=== PATIENT | male | born 2000 | race Caucasian/White ===

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

== ENCOUNTER → 2022-08-07 | Outpatient (REF) | LOC: M EMP 13:18 | PROVIDERS: ATTEND Family Medicine | DX: Z11.52 Encounter for screening for COVID-19 (principal) ==

== ENCOUNTER 2023-04-03 01:06 | Emergency (ER) | payer OTHER ==
[~2023-04-03] VITALS: Ht 152.4 cm; Wt 57.2 kg
[2023-04-03 02:08] LABS: RSV AMPLIFICATION POSITIVE (NEGATIVE)
[2023-04-03] MEDS ORDERED: ONDANSETRON 4MG ORAL DISINTEGRATING TAB PO ONE (06:25)
[2023-04-03 06:42] LABS: BASO % 0.5 % (0.0-1.0); EOS % 0.6 % (0.0-3.0); HEMATOCRIT 38.3 % (42.0-52.0); HEMOGLOBIN 12.5 g/dl (13.5-17.5); LYMPH # 1.4 10^3/uL (1.5-5.0); LYMPH % 20.8 % (24.0-44.0); MEAN CORPUSCULAR HEMOGLOBIN 27.8 pg (27.0-33.0); MEAN CORPUSCULAR HGB CONC 32.6 g/dl (32.0-36.5); MEAN CORPUSCULAR VOLUME 85.1 fl (80.0-96.0); MONO # 0.5 10^3/uL (0.0-0.8); MONO % 6.9 % (2.0-8.0); NEUTROPHILS # 4.7 10^3/uL (1.5-8.5); NEUTROPHILS % 70.9 % (36.0-66.0); PLATELET COUNT, AUTOMATED 278 10^3/uL (150-450); WHITE BLOOD COUNT 6.6 10^3/uL (4.0-10.0)
[2023-04-03 07:14] LABS: ALBUMIN 3.1 G/DL (3.2-5.2); ALKALINE PHOSPHATASE 658 U/L (46-116); ALT/SGPT 203 U/L (7.0-40); AST/SGOT 100 U/L (<34); BILIRUBIN,DIRECT 0.5 MG/DL (<0.4); BILIRUBIN,TOTAL 0.9 MG/DL (0.3-1.2); BLOOD UREA NITROGEN 6 MG/DL (9-23); CALCIUM LEVEL 8.2 MG/DL (8.5-10.1); CARBON DIOXIDE LEVEL 27 MMOL/L (20-31); CHLORIDE LEVEL 103 MMOL/L (98-107); CREATININE FOR GFR 0.66 MG/DL (0.70-1.30); GLOMERULAR FILTRATION RATE > 60.0 (>60); GLUCOSE, FASTING 97 MG/DL (60-100); POTASSIUM SERUM 4.3 MMOL/L (3.5-5.1); SODIUM LEVEL 138 MMOL/L (136-145); TOTAL PROTEIN 7.3 G/DL (5.7-8.2)
[2023-04-03] MEDS ORDERED: NS 1,000 ML IV ONE (09:00)
[2023-04-03] MEDS ORDERED: ISOVUE-370 76% 100ML VIAL As Ordered ONE (09:04)
[2023-04-03 09:32] LABS: LIPASE 26 U/L (12-53)
[2023-04-03 11:45] VITALS: BP 112/67; TEMP 98.4; O2SAT 97
[2023-04-03 11:49] LABS: HEPATITIS B CORE ANTIBODY IGM NEGATIVE (NEGATIVE); HEPATITIS C VIRUS ABY INDEX 0.97 INDEX (<0.8)
[2023-04-05] MEDS ORDERED: AZIT-10 GT (11:42)
== END 2023-04-03 11:55 | disposition home or self-care (01) ==
LOC: M ED 01:06
DX: J06.9 Acute upper respiratory infection, unspecified (principal); B97.4 Respiratory syncytial virus as the cause of diseases classified elsewhere; K68.9 Other disorders of retroperitoneum; R59.1 Generalized enlarged lymph nodes; R16.2 Hepatomegaly with splenomegaly, not elsewhere classified; K82.4 Cholesterolosis of gallbladder
CPT/HCPCS: 72131; 74177; 76705; 80048; 80076; 83690; 85025; 86705; 86709; 86803; 87340; 87631; 96360; 96361; 99284; Q9967

== ENCOUNTER → 2023-04-05 | Outpatient (CLI) | payer OTHER ==
[~2023-04-05] MED LIST: AZIT-10 GT
== END ==
LOC: M RAD 12:21
PROVIDERS: ATTEND Specialist
DX: J18.9 Pneumonia, unspecified organism (principal)

== ENCOUNTER 2023-04-16 05:24 | Emergency (ER) | payer OTHER ==
[~2023-04-16] VITALS: Ht 152.4 cm; Wt 65.6 kg
[2023-04-16 07:23] VITALS: BP 148/75; TEMP 98; O2SAT 98
== END 2023-04-16 08:16 | disposition home or self-care (01) ==
LOC: M ED 05:24
DX: R22.42 Localized swelling, mass and lump, left lower limb (principal); Z91.011 Allergy to milk products; Z79.899 Other long term (current) drug therapy

== ENCOUNTER 2023-04-17 15:09 | Inpatient (IN) | payer OTHER ==
[2023-04-17 18:05] LABS: BASO % 0.4 % (0.0-1.0); EOS # 0.1 10^3/uL (0.0-0.5); EOS % 0.9 % (0.0-3.0); HEMATOCRIT 37.2 % (42.0-52.0); HEMOGLOBIN 11.8 g/dl (13.5-17.5); LYMPH # 1.8 10^3/uL (1.5-5.0); LYMPH % 24.5 % (24.0-44.0); MEAN CORPUSCULAR HEMOGLOBIN 27.3 pg (27.0-33.0); MEAN CORPUSCULAR HGB CONC 31.7 g/dl (32.0-36.5); MEAN CORPUSCULAR VOLUME 86.1 fl (80.0-96.0); MONO # 0.6 10^3/uL (0.0-0.8); MONO % 8.2 % (2.0-8.0); NEUTROPHILS # 4.9 10^3/uL (1.5-8.5); NEUTROPHILS % 65.6 % (36.0-66.0); PLATELET COUNT, AUTOMATED 260 10^3/uL (150-450); RED BLOOD COUNT 4.32 10^6/uL (4.30-6.10); WHITE BLOOD COUNT 7.4 10^3/uL (4.0-10.0)
[2023-04-17 18:13] LABS: ERYTHROCYTE SEDIMENTATION RATE 80 mm/hr (0-15)
[2023-04-17 18:17] LABS: INR 1.04; PROTHROMBIN TIME 13.3 SECONDS (12.5-14.5)
[2023-04-17 18:18] LABS: PARTIAL THROMBOPLASTIN TIME 45.1 SECONDS (24.8-34.2)
[2023-04-17 18:20] LABS: D-DIMER QUANT 0.79 ug/mL (<0.5)
[2023-04-17 18:30] LABS: CK-MB VALUE MASS < 1.0 NG/ML (<3.6); LIPASE 28 U/L (12-53)
[2023-04-17 18:32] LABS: ALBUMIN 1.1 G/DL (3.2-5.2); ALKALINE PHOSPHATASE 411 U/L (46-116); ALT/SGPT 76 U/L (7.0-40); AST/SGOT 66 U/L (<34); BILIRUBIN,DIRECT < 0.1 MG/DL (<0.4); BILIRUBIN,TOTAL 0.2 MG/DL (0.3-1.2); BLOOD UREA NITROGEN 12 MG/DL (9-23); CALCIUM LEVEL 7.3 MG/DL (8.5-10.1); CARBON DIOXIDE LEVEL 28 MMOL/L (20-31); CHLORIDE LEVEL 110 MMOL/L (98-107); CPK CREATINE PHOSPHOKINASE 49 U/L (46-171); CREATININE FOR GFR 0.66 MG/DL (0.70-1.30); GLOMERULAR FILTRATION RATE > 60.0 (>60); GLUCOSE, FASTING 87 MG/DL (60-100); MAGNESIUM LEVEL 1.8 MG/DL (1.8-2.4); MB/CK RELATIVE INDEX 2.04 (< OR =4); POTASSIUM SERUM 4.2 MMOL/L (3.5-5.1); SODIUM LEVEL 140 MMOL/L (136-145); TOTAL PROTEIN 4.4 G/DL (5.7-8.2)
[2023-04-17 18:33] LABS: FREE T4 0.67 NG/DL (0.89-1.76); THYROID STIMULATING HORMONE 5.821 uIU/ML (0.55-4.78)
[2023-04-17 18:38] LABS: PROCALCITONIN 1.15 ng/ml
[2023-04-17 18:40] LABS: MONO SCRN NEGATIVE (NEGATIVE)
[2023-04-17 19:04] LABS: LDH LACTATE DEHYDROGENASE 166 U/L (120-246)
[2023-04-17] MEDS ORDERED: ISOVUE-370 76% 100ML VIAL As Ordered ONE (19:11)
[2023-04-17 20:43] LABS: IONIZED CALCIUM 4.4 MG/DL (4.5-5.3)
[2023-04-17] MEDS ORDERED: HOME MED LIST COMPLETE! XX SCH (21:10)
[2023-04-17 21:39] LABS: PTH INTACT 35.1 PG/ML (18.5-88.0)
[2023-04-17] MEDS ORDERED: FUROSEMIDE 20MG/2ML VIAL IV ONE (22:20)
[2023-04-17 22:30] VITALS: BP 145/91; TEMP 97.7; O2SAT 96
[2023-04-17 23:04] LABS: HIV 1&2 SCREEN NEGATIVE (NEGATIVE)
[2023-04-18] MEDS: HEPARIN SOD (PORCINE) 5000UNITS/ML 1ML VIAL/SYRINGE SC SCH ×3 (05:34→21:44)
[2023-04-18 06:23] LABS: ALBUMIN 1.1 G/DL (3.2-5.2); ALKALINE PHOSPHATASE 406 U/L (46-116); ALT/SGPT 62 U/L (7.0-40); AST/SGOT 55 U/L (<34); BILIRUBIN,TOTAL 0.3 MG/DL (0.3-1.2); BLOOD UREA NITROGEN 10 MG/DL (9-23); CALCIUM LEVEL 7.1 MG/DL (8.5-10.1); CARBON DIOXIDE LEVEL 28 MMOL/L (20-31); CHLORIDE LEVEL 107 MMOL/L (98-107); CREATININE FOR GFR 0.67 MG/DL (0.70-1.30); GLOMERULAR FILTRATION RATE > 60.0 (>60); GLUCOSE, FASTING 85 MG/DL (60-100); POTASSIUM SERUM 4.2 MMOL/L (3.5-5.1); SODIUM LEVEL 139 MMOL/L (136-145); TOTAL PROTEIN 4.2 G/DL (5.7-8.2)
[2023-04-18 06:52] VITALS: BP 129/74; TEMP 97.9; O2SAT 100
[2023-04-18] MEDS: FUROSEMIDE 20MG/2ML VIAL IV SCH (08:36)
[2023-04-18 09:31] LABS: CREATININE,RANDOM URINE 201.8 MG/DL
[2023-04-18 10:12] LABS: ANTI-STREPTOLYSIN O QUANT 194.6 IU/ML (<195)
[2023-04-18 10:13] LABS: COMPLEMENT C3 156.3 MG/DL (82.0-160.0); COMPLEMENT C4 27.5 MG/DL (12-36)
[2023-04-18 14:10] VITALS: BP 126/76; TEMP 98.1; O2SAT 99
[2023-04-18 18:08] LABS: THYROID PEROXIDASE ANTIBODY < 28.0 U/ML (<60.0); THYROID STIMULATING HORMONE 5.908 uIU/ML (0.55-4.78)
[2023-04-18 18:09] LABS: FREE T4 0.62 NG/DL (0.89-1.76)
[2023-04-18 18:51] LABS: HEPATITIS C VIRUS ABY INDEX 0.27 INDEX (<0.8)
[2023-04-18 20:18] VITALS: BP 130/75; TEMP 97.9; O2SAT 99
[2023-04-19] VITALS (8 sets, daily range): BP systolic 112–127; BP diastolic 58–80; TEMP 97.2–98.2; O2SAT 96–99
[2023-04-19] MEDS: HEPARIN SOD (PORCINE) 5000UNITS/ML 1ML VIAL/SYRINGE SC SCH ×3 (05:21→22:01)
[2023-04-19 06:58] LABS: BASO % 0.4 % (0.0-1.0); EOS # 0.1 10^3/uL (0.0-0.5); EOS % 2.3 % (0.0-3.0); HEMATOCRIT 35.7 % (42.0-52.0); HEMOGLOBIN 11.7 g/dl (13.5-17.5); LYMPH # 1.8 10^3/uL (1.5-5.0); LYMPH % 34.4 % (24.0-44.0); MEAN CORPUSCULAR HEMOGLOBIN 27.7 pg (27.0-33.0); MEAN CORPUSCULAR HGB CONC 32.8 g/dl (32.0-36.5); MEAN CORPUSCULAR VOLUME 84.6 fl (80.0-96.0); MONO # 0.4 10^3/uL (0.0-0.8); MONO % 8.2 % (2.0-8.0); NEUTROPHILS # 2.8 10^3/uL (1.5-8.5); NEUTROPHILS % 54.3 % (36.0-66.0); PLATELET COUNT, AUTOMATED 295 10^3/uL (150-450); RED BLOOD COUNT 4.22 10^6/uL (4.30-6.10); WHITE BLOOD COUNT 5.1 10^3/uL (4.0-10.0)
[2023-04-19 07:07] LABS: ALBUMIN 1.1 G/DL (3.2-5.2); ALKALINE PHOSPHATASE 432 U/L (46-116); ALT/SGPT 64 U/L (7.0-40); AST/SGOT 76 U/L (<34); BILIRUBIN,TOTAL 0.2 MG/DL (0.3-1.2); BLOOD UREA NITROGEN 12 MG/DL (9-23); CALCIUM LEVEL 7.1 MG/DL (8.5-10.1); CARBON DIOXIDE LEVEL 29 MMOL/L (20-31); CHLORIDE LEVEL 106 MMOL/L (98-107); CREATININE FOR GFR 0.64 MG/DL (0.70-1.30); GLOMERULAR FILTRATION RATE > 60.0 (>60); GLUCOSE, FASTING 93 MG/DL (60-100); POTASSIUM SERUM 3.8 MMOL/L (3.5-5.1); SODIUM LEVEL 139 MMOL/L (136-145); TOTAL PROTEIN 4.2 G/DL (5.7-8.2)
[2023-04-19] MEDS: FUROSEMIDE 20MG/2ML VIAL IV SCH (08:29)
[2023-04-19 09:45] LABS: FREE T4 0.52 NG/DL (0.89-1.76); THYROID STIMULATING HORMONE 9.245 uIU/ML (0.55-4.78)
[2023-04-19] MEDS ORDERED: LIDOCAINE 1% MDV 20ML VIAL As Ordered ONE (10:59)
[2023-04-20] VITALS (7 sets, daily range): BP systolic 117–151; BP diastolic 66–82; TEMP 97–97.7; O2SAT 96–98
[2023-04-20] MEDS: HEPARIN SOD (PORCINE) 5000UNITS/ML 1ML VIAL/SYRINGE SC SCH ×3 (06:00→20:45)
[2023-04-20] MEDS: LEVOTHYROXINE 88MCG TABLET (0.088 MG) PO SCH (06:01)
[2023-04-20 06:13] LABS: BASO % 0.6 % (0.0-1.0); EOS # 0.1 10^3/uL (0.0-0.5); EOS % 1.5 % (0.0-3.0); HEMATOCRIT 33.5 % (42.0-52.0); LYMPH # 1.9 10^3/uL (1.5-5.0); LYMPH % 34.3 % (24.0-44.0); MEAN CORPUSCULAR HEMOGLOBIN 27.6 pg (27.0-33.0); MEAN CORPUSCULAR HGB CONC 32.8 g/dl (32.0-36.5); MEAN CORPUSCULAR VOLUME 84.2 fl (80.0-96.0); MONO # 0.6 10^3/uL (0.0-0.8); MONO % 10.1 % (2.0-8.0); NEUTROPHILS # 2.9 10^3/uL (1.5-8.5); NEUTROPHILS % 53.1 % (36.0-66.0); PLATELET COUNT, AUTOMATED 260 10^3/uL (150-450); RED BLOOD COUNT 3.98 10^6/uL (4.30-6.10); WHITE BLOOD COUNT 5.4 10^3/uL (4.0-10.0)
[2023-04-20 06:28] LABS: BLOOD UREA NITROGEN 11 MG/DL (9-23); CALCIUM LEVEL 7.1 MG/DL (8.5-10.1); CARBON DIOXIDE LEVEL 28 MMOL/L (20-31); CHLORIDE LEVEL 108 MMOL/L (98-107); CREATININE FOR GFR 0.69 MG/DL (0.70-1.30); GLOMERULAR FILTRATION RATE > 60.0 (>60); GLUCOSE, FASTING 83 MG/DL (60-100); POTASSIUM SERUM 4.1 MMOL/L (3.5-5.1); SODIUM LEVEL 140 MMOL/L (136-145)
[2023-04-20] MEDS: FUROSEMIDE 20MG/2ML VIAL IV SCH (08:21)
[2023-04-20] MEDS ORDERED: LIDOCAINE 2% 100MG/5ML SDV (FOR ANES.) As Ordered ONE (10:56)
[2023-04-20] MEDS ORDERED: propofoL 200 MG/20 ML VIAL As Ordered ONE (10:56)
[2023-04-20] MEDS ORDERED: fentaNYL 100 MCG/2 ML INJECTION As Ordered ONE (10:56)
[2023-04-20] MEDS ORDERED: ONDANSETRON 4MG 2ML VIAL As Ordered ONE (10:56)
[2023-04-20] MEDS ORDERED: ACETAMINOPHEN 1000MG 100ML IV BAG As Ordered ONE (10:56)
[2023-04-20] MEDS ORDERED: MIDAZOLAM INJ 2MG/2ML VIAL As Ordered ONE (10:57)
[2023-04-20] MEDS ORDERED: SUGAMMADEX SODIUM 500 MG/5 ML VIAL (BRIDION) As Ordered ONE (11:02)
[2023-04-20] MEDS ORDERED: ROCURONIUM BROMIDE 50MG/5ML VIAL As Ordered ONE (11:02)
[2023-04-20] MEDS ORDERED: LIDOCAINE W/EPINEPHRINE 1% 20ML VIAL As Ordered ONE (11:19)
[2023-04-20] MEDS ORDERED: ONDANSETRON 4MG 2ML VIAL IV PRN (12:35)
[2023-04-20] MEDS ORDERED: fentaNYL 100 MCG/2 ML INJECTION IV PRN (12:35)
[2023-04-20] MEDS ORDERED: oxyCODONE 5MG TAB PO PRN (12:35)
[2023-04-20] MEDS ORDERED: HYDROMORPHONE HCL 0.5 MG/ 0.5 ML SYRINGE IV PRN (12:35)
[2023-04-20] MEDS ORDERED: LR 1,000 ML IV SCH (12:35)
[2023-04-21 02:19] VITALS: BP 151/82; TEMP 97.7; O2SAT 97
[2023-04-21] MEDS: LEVOTHYROXINE 88MCG TABLET (0.088 MG) PO SCH (05:20)
[2023-04-21] MEDS: HEPARIN SOD (PORCINE) 5000UNITS/ML 1ML VIAL/SYRINGE SC SCH ×2 (05:24→14:00)
[2023-04-21 05:56] VITALS: BP 132/72; TEMP 98.4; O2SAT 96
[2023-04-21 07:16] LABS: BASO % 0.1 % (0.0-1.0); EOS % 0.5 % (0.0-3.0); HEMATOCRIT 34.6 % (42.0-52.0); HEMOGLOBIN 11.7 g/dl (13.5-17.5); LYMPH # 2.2 10^3/uL (1.5-5.0); LYMPH % 28.8 % (24.0-44.0); MEAN CORPUSCULAR HEMOGLOBIN 28.2 pg (27.0-33.0); MEAN CORPUSCULAR HGB CONC 33.8 g/dl (32.0-36.5); MEAN CORPUSCULAR VOLUME 83.4 fl (80.0-96.0); MONO # 0.8 10^3/uL (0.0-0.8); MONO % 9.7 % (2.0-8.0); NEUTROPHILS # 4.7 10^3/uL (1.5-8.5); NEUTROPHILS % 60.6 % (36.0-66.0); PLATELET COUNT, AUTOMATED 298 10^3/uL (150-450); RED BLOOD COUNT 4.15 10^6/uL (4.30-6.10); WHITE BLOOD COUNT 7.8 10^3/uL (4.0-10.0)
[2023-04-21 08:24] LABS: BLOOD UREA NITROGEN 17 MG/DL (9-23); CALCIUM LEVEL 7.5 MG/DL (8.5-10.1); CHLORIDE LEVEL 107 MMOL/L (98-107); CREATININE FOR GFR 0.73 MG/DL (0.70-1.30); GLOMERULAR FILTRATION RATE > 60.0 (>60); GLUCOSE, FASTING 136 MG/DL (60-100); SODIUM LEVEL 141 MMOL/L (136-145)
[2023-04-21 08:51] LABS: CARBON DIOXIDE LEVEL 29 MMOL/L (20-31)
[2023-04-21] MEDS: FUROSEMIDE 20MG/2ML VIAL IV SCH (09:40)
[2023-04-21 10:00] VITALS: BP 101/54; TEMP 97.3; O2SAT 98
[2023-04-21] MEDS ORDERED: LISI10TA24 PO (11:09)
[2023-04-21 14:00] VITALS: BP 99/52; TEMP 97.7; O2SAT 95
[2023-04-21] MEDS ORDERED: LEVO88CA PO (16:37)
== END 2023-04-21 18:00 | disposition home or self-care (01) | DRG 952 ==
LOC: M ED 15:09 → M ED INP 20:56 → M MS5PR 22:25
PROVIDERS: ADMIT Internal Medicine; ATTEND Internal Medicine
PROC: 0TB13ZX Excision of Left Kidney, Percutaneous Approach, Diagnostic (ICD-10-PCS; principal; 2023-04-19 11:30)
PROC: 07B20ZX Excision of Left Neck Lymphatic, Open Approach, Diagnostic (ICD-10-PCS; 2023-04-20)
DX: N04.9 Nephrotic syndrome with unspecified morphologic changes (principal); E88.09 Other disorders of plasma-protein metabolism, not elsewhere classified; I10 Essential (primary) hypertension; E83.51 Hypocalcemia; R16.0 Hepatomegaly, not elsewhere classified; R63.4 Abnormal weight loss; D64.9 Anemia, unspecified; R59.1 Generalized enlarged lymph nodes; R80.9 Proteinuria, unspecified; D63.8 Anemia in other chronic diseases classified elsewhere; B19.20 Unspecified viral hepatitis C without hepatic coma; E03.9 Hypothyroidism, unspecified; R74.01 Elevation of levels of liver transaminase levels; R60.0 Localized edema

== ENCOUNTER 2023-04-27 20:43 | Emergency (ER) | payer OTHER ==
[~2023-04-27] VITALS: Ht 152.4 cm; Wt 54.7 kg
[~2023-04-27 20:43] MED LIST changes: +LEVO88CA PO; +LISI10TA24 PO
[2023-04-28 00:39] VITALS: TEMP 98
[2023-04-28 03:15] VITALS: BP 115/60; O2SAT 98
== END 2023-04-28 03:30 | disposition home or self-care (01) ==
LOC: M ED 20:43
DX: R03.0 Elevated blood-pressure reading, without diagnosis of hypertension (principal); T40.715A Adverse effect of cannabis, initial encounter; F12.10 Cannabis abuse, uncomplicated

== ENCOUNTER 2023-04-30 19:40 | Emergency (ER) | payer OTHER ==
[~2023-04-30] VITALS: Ht 152.4 cm; Wt 52.5 kg
[2023-04-30 21:12] LABS: BASO % 0.5 % (0.0-1.0); EOS # 0.1 10^3/uL (0.0-0.5); EOS % 1.1 % (0.0-3.0); HEMATOCRIT 46.3 % (42.0-52.0); HEMOGLOBIN 15.7 g/dl (13.5-17.5); LYMPH # 2.2 10^3/uL (1.5-5.0); LYMPH % 33.3 % (24.0-44.0); MEAN CORPUSCULAR HEMOGLOBIN 27.8 pg (27.0-33.0); MEAN CORPUSCULAR HGB CONC 33.9 g/dl (32.0-36.5); MEAN CORPUSCULAR VOLUME 82.1 fl (80.0-96.0); MONO # 0.6 10^3/uL (0.0-0.8); MONO % 8.7 % (2.0-8.0); NEUTROPHILS # 3.6 10^3/uL (1.5-8.5); NEUTROPHILS % 56.1 % (36.0-66.0); PLATELET COUNT, AUTOMATED 300 10^3/uL (150-450); RED BLOOD COUNT 5.64 10^6/uL (4.30-6.10); WHITE BLOOD COUNT 6.5 10^3/uL (4.0-10.0)
[2023-04-30 21:25] LABS: AMPHETAMINES LEVEL URINE NEGATIVE (NEGATIVE); BARBITURATES URINE NEGATIVE (NEGATIVE); BENZODIAZEPINES URINE NEGATIVE (NEGATIVE); COCAINE METABOLITE URINE NEGATIVE (NEGATIVE); METHADONE URINE NEGATIVE (NEGATIVE); OPIATES URINE NEGATIVE (NEGATIVE); PHENCYCLIDINE URINE NEGATIVE (NEGATIVE)
[2023-04-30 21:26] LABS: CANNABINOIDS URINE POSITIVE (NEGATIVE)
[2023-04-30 21:39] LABS: LIPASE 36 U/L (12-53)
[2023-04-30 21:41] LABS: CPK CREATINE PHOSPHOKINASE 18 U/L (46-171)
[2023-04-30 21:42] LABS: ALBUMIN 2.8 G/DL (3.2-5.2); ALKALINE PHOSPHATASE 670 U/L (46-116); ALT/SGPT 117 U/L (7.0-40); AST/SGOT 88 U/L (<34); BILIRUBIN,DIRECT 0.2 MG/DL (<0.4); BILIRUBIN,TOTAL 0.6 MG/DL (0.3-1.2); BLOOD UREA NITROGEN 13 MG/DL (9-23); CALCIUM LEVEL 8.6 MG/DL (8.5-10.1); CARBON DIOXIDE LEVEL 29 MMOL/L (20-31); CHLORIDE LEVEL 97 MMOL/L (98-107); CK-MB VALUE MASS < 1.0 NG/ML (<3.6); CREATININE FOR GFR 0.68 MG/DL (0.70-1.30); GLOMERULAR FILTRATION RATE > 60.0 (>60); GLUCOSE, FASTING 101 MG/DL (60-100); MAGNESIUM LEVEL 1.9 MG/DL (1.8-2.4); MB/CK RELATIVE INDEX 5.55 (< OR =4); POTASSIUM SERUM 4.3 MMOL/L (3.5-5.1); SODIUM LEVEL 132 MMOL/L (136-145); TOTAL PROTEIN 7.3 G/DL (5.7-8.2)
[2023-04-30 21:45] LABS: FREE T4 1.53 NG/DL (0.89-1.76); THYROID STIMULATING HORMONE 2.599 uIU/ML (0.55-4.78)
[2023-04-30] MEDS ORDERED: NS 1,000 ML IV ONE (22:20)
[2023-05-01 01:10] VITALS: BP 112/74; TEMP 98.4; O2SAT 98
== END 2023-05-01 01:30 | disposition home or self-care (01) ==
LOC: M ED 19:40
DX: R00.2 Palpitations (principal); Z79.890 Hormone replacement therapy

== ENCOUNTER 2023-05-03 14:39 | Emergency (ER) | payer OTHER ==
[~2023-05-03] VITALS: Ht 152.4 cm; Wt 53.3 kg
[2023-05-03 15:37] LABS: BASO % 0.4 % (0.0-1.0); EOS # 0.1 10^3/uL (0.0-0.5); EOS % 1.6 % (0.0-3.0); HEMATOCRIT 41.4 % (42.0-52.0); HEMOGLOBIN 14.2 g/dl (13.5-17.5); LYMPH # 2.6 10^3/uL (1.5-5.0); LYMPH % 35.8 % (24.0-44.0); MEAN CORPUSCULAR HEMOGLOBIN 27.8 pg (27.0-33.0); MEAN CORPUSCULAR HGB CONC 34.3 g/dl (32.0-36.5); MEAN CORPUSCULAR VOLUME 81.2 fl (80.0-96.0); MONO # 0.7 10^3/uL (0.0-0.8); MONO % 9.2 % (2.0-8.0); NEUTROPHILS # 3.8 10^3/uL (1.5-8.5); NEUTROPHILS % 52.7 % (36.0-66.0); PLATELET COUNT, AUTOMATED 265 10^3/uL (150-450); WHITE BLOOD COUNT 7.3 10^3/uL (4.0-10.0)
[2023-05-03 16:08] LABS: LIPASE 45 U/L (12-53)
[2023-05-03 16:12] LABS: FREE T4 1.63 NG/DL (0.89-1.76); THYROID STIMULATING HORMONE 2.082 uIU/ML (0.55-4.78)
[2023-05-03 16:13] LABS: ALBUMIN 2.7 G/DL (3.2-5.2); ALKALINE PHOSPHATASE 626 U/L (46-116); ALT/SGPT 147 U/L (7.0-40); AST/SGOT 128 U/L (<34); BILIRUBIN,DIRECT 0.2 MG/DL (<0.4); BILIRUBIN,TOTAL 0.4 MG/DL (0.3-1.2); BLOOD UREA NITROGEN 14 MG/DL (9-23); CALCIUM LEVEL 7.9 MG/DL (8.5-10.1); CARBON DIOXIDE LEVEL 26 MMOL/L (20-31); CHLORIDE LEVEL 102 MMOL/L (98-107); CREATININE FOR GFR 0.55 MG/DL (0.70-1.30); GLOMERULAR FILTRATION RATE > 60.0 (>60); GLUCOSE, FASTING 114 MG/DL (60-100); POTASSIUM SERUM 4.2 MMOL/L (3.5-5.1); SODIUM LEVEL 135 MMOL/L (136-145); TOTAL PROTEIN 6.6 G/DL (5.7-8.2)
[2023-05-03] MEDS ORDERED: NS 1,000 ML IV ONE (17:55)
[2023-05-03] MEDS ORDERED: AUGMENTIN 875 MG TAB PO ONE (18:25)
[2023-05-03 19:23] VITALS: BP 115/55; TEMP 97; O2SAT 99
[2023-05-03] MEDS ORDERED: AMOX875T2 PO (19:37)
== END 2023-05-03 19:48 | disposition home or self-care (01) ==
LOC: M ED 14:39
DX: J02.0 Streptococcal pharyngitis (principal); I49.9 Cardiac arrhythmia, unspecified; Z91.011 Allergy to milk products; Z79.899 Other long term (current) drug therapy; Z79.890 Hormone replacement therapy

== ENCOUNTER → 2023-05-08 | Outpatient (REF) | payer OTHER ==
[~2023-05-08] MED LIST changes: +AMOX875T2 PO
[2023-05-08 17:21] LABS: BASO % 0.7 % (0.0-1.0); EOS # 0.1 10^3/uL (0.0-0.5); EOS % 1.5 % (0.0-3.0); HEMATOCRIT 45.9 % (42.0-52.0); HEMOGLOBIN 15.4 g/dl (13.5-17.5); LYMPH # 2.8 10^3/uL (1.5-5.0); LYMPH % 47.7 % (24.0-44.0); MEAN CORPUSCULAR HEMOGLOBIN 27.9 pg (27.0-33.0); MEAN CORPUSCULAR HGB CONC 33.6 g/dl (32.0-36.5); MEAN CORPUSCULAR VOLUME 83.3 fl (80.0-96.0); MONO # 0.4 10^3/uL (0.0-0.8); NEUTROPHILS # 2.6 10^3/uL (1.5-8.5); NEUTROPHILS % 43.8 % (36.0-66.0); PLATELET COUNT, AUTOMATED 324 10^3/uL (150-450); RED BLOOD COUNT 5.51 10^6/uL (4.30-6.10); WHITE BLOOD COUNT 5.9 10^3/uL (4.0-10.0)
[2023-05-08 17:22] LABS: HEMOGLOBIN A1c 5.2 % (4.0-6.0)
[2023-05-08 17:33] LABS: CREATININE, URINE 39.4 MG/DL; CREATININE,RANDOM URINE 39.4 MG/DL
[2023-05-08 17:34] LABS: MAU/CREAT RATIO 291.8 MCG/MG (0.0-30.0)
[2023-05-08 17:35] LABS: ALBUMIN 3.4 G/DL (3.2-5.2); ALKALINE PHOSPHATASE 646 U/L (46-116); ALT/SGPT 166 U/L (7.0-40); AST/SGOT 106 U/L (<34); BILIRUBIN,DIRECT 0.2 MG/DL (<0.4); BILIRUBIN,TOTAL 0.4 MG/DL (0.3-1.2); BLOOD UREA NITROGEN 10 MG/DL (9-23); CALCIUM LEVEL 8.7 MG/DL (8.5-10.1); CARBON DIOXIDE LEVEL 32 MMOL/L (20-31); CHLORIDE LEVEL 102 MMOL/L (98-107); CHOLESTEROL LEVEL 192 MG/DL (<200); CHOLESTEROL RISK RATIO 4.21 (<5); CREATININE FOR GFR 0.72 MG/DL (0.70-1.30); GLOMERULAR FILTRATION RATE > 60.0 (>60); GLUCOSE, FASTING 97 MG/DL (60-100); HDL CHOLESTEROL 45.6 MG/DL (>40); LDL CHOLESTEROL 111.4 MG/DL (<100); NON-HDL-C 146.4 MG/DL; POTASSIUM SERUM 4.8 MMOL/L (3.5-5.1); SODIUM LEVEL 137 MMOL/L (136-145); TOTAL PROTEIN 7.5 G/DL (5.7-8.2); TRIGLYCERIDES LEVEL 175 MG/DL (<150)
[2023-05-08 17:36] LABS: FREE T4 1.86 NG/DL (0.89-1.76); THYROID STIMULATING HORMONE 2.322 uIU/ML (0.55-4.78)
[2023-05-08 19:01] LABS: CHLAMYDIA DNA AMPLIFICATION NEGATIVE (NEGATIVE); GC DNA AMPLIFICATION NEGATIVE (NEGATIVE)
== END ==
LOC: M LAB REF 16:22
PROVIDERS: ATTEND Nurse Practitioner Family
DX: R80.9 Proteinuria, unspecified (principal); Z11.9 Encounter for screening for infectious and parasitic diseases, unspecified; R74.01 Elevation of levels of liver transaminase levels; N04.9 Nephrotic syndrome with unspecified morphologic changes; E55.9 Vitamin D deficiency, unspecified; R53.83 Other fatigue; E06.9 Thyroiditis, unspecified

== ENCOUNTER → 2023-05-15 | Outpatient (REF) | payer OTHER ==
[~2023-05-15] MED LIST changes: +MIRA3350 PO
== END ==
LOC: M LAB REF 17:23
PROVIDERS: ATTEND Internal Medicine Nephrology
DX: N04.20 Nephrotic syndrome with diffuse membranous glomerulonephritis, unspecified (principal)

== ENCOUNTER → 2023-06-19 | Outpatient (CLI) | payer OTHER ==
[2023-06-19 14:08] LABS: ALBUMIN 3.7 G/DL (3.2-5.2); ALKALINE PHOSPHATASE 99 U/L (46-116); ALT/SGPT 20 U/L (7.0-40); AST/SGOT 19 U/L (<34); BILIRUBIN,TOTAL 0.5 MG/DL (0.3-1.2); BLOOD UREA NITROGEN 15 MG/DL (9-23); CALCIUM LEVEL 9.3 MG/DL (8.5-10.1); CARBON DIOXIDE LEVEL 34 MMOL/L (20-31); CHLORIDE LEVEL 104 MMOL/L (98-107); CREATININE FOR GFR 0.69 MG/DL (0.70-1.30); GLOMERULAR FILTRATION RATE > 60.0 (>60); GLUCOSE, FASTING 89 MG/DL (60-100); POTASSIUM SERUM 4.3 MMOL/L (3.5-5.1); SODIUM LEVEL 140 MMOL/L (136-145); TOTAL PROTEIN 6.7 G/DL (5.7-8.2)
[2023-06-19 14:09] LABS: BASO % 0.3 % (0.0-1.0); EOS # 0.1 10^3/uL (0.0-0.5); EOS % 1.2 % (0.0-3.0); HEMATOCRIT 40.2 % (42.0-52.0); HEMOGLOBIN 13.6 g/dl (13.5-17.5); LYMPH # 2.7 10^3/uL (1.5-5.0); LYMPH % 45.7 % (24.0-44.0); MEAN CORPUSCULAR HEMOGLOBIN 28.5 pg (27.0-33.0); MEAN CORPUSCULAR HGB CONC 33.8 g/dl (32.0-36.5); MEAN CORPUSCULAR VOLUME 84.1 fl (80.0-96.0); MONO # 0.5 10^3/uL (0.0-0.8); MONO % 7.8 % (2.0-8.0); NEUTROPHILS # 2.6 10^3/uL (1.5-8.5); NEUTROPHILS % 44.7 % (36.0-66.0); PLATELET COUNT, AUTOMATED 265 10^3/uL (150-450); RED BLOOD COUNT 4.78 10^6/uL (4.30-6.10); WHITE BLOOD COUNT 5.9 10^3/uL (4.0-10.0)
[2023-06-19 14:12] LABS: HEPATITIS B SURFACE ANTIBODY POSITIVE (POSITIVE)
[2023-06-19 14:38] LABS: HIV 1&2 SCREEN NEGATIVE (NEGATIVE)
== END ==
LOC: M PLALAB 10:20
PROVIDERS: ATTEND Internal Medicine Infectious Disease
DX: A52.8 Late syphilis, latent (principal); Z91.89 Other specified personal risk factors, not elsewhere classified

== ENCOUNTER → 2023-06-22 | Outpatient (CLI) | payer OTHER | LOC: M RAD 13:33 | PROVIDERS: ATTEND Urology | DX: N50.89 Other specified disorders of the male genital organs (principal) ==

== ENCOUNTER → 2023-07-16 | Outpatient (REF) | payer OTHER ==
[2023-07-16 18:23] LABS: THYROID STIMULATING HORMONE 1.277 uIU/ML (0.55-4.78)
== END ==
LOC: M LAB REF 17:12
PROVIDERS: ATTEND Nurse Practitioner Family
DX: E06.9 Thyroiditis, unspecified (principal); R77.8 Other specified abnormalities of plasma proteins

== ENCOUNTER → 2023-07-24 | Outpatient (CLI) | payer OTHER | LOC: M EKG 12:02 | PROVIDERS: ATTEND Nurse Practitioner Family | DX: R00.2 Palpitations (principal) ==

== ENCOUNTER → 2023-07-30 | Outpatient (CLI) | payer OTHER ==
[~2023-07-30] MED LIST changes: +GASTROGRAFIN SOLUTION 30ML As Ordered ONE; +ISOVUE-370 76% 100ML VIAL As Ordered ONE
== END ==
LOC: M RAD 09:59
PROVIDERS: ATTEND Specialist
DX: I89.0 Lymphedema, not elsewhere classified (principal); R16.2 Hepatomegaly with splenomegaly, not elsewhere classified
CPT/HCPCS: 74177; Q9963; Q9967

== ENCOUNTER → 2023-12-07 | Outpatient (CLI) | payer OTHER ==
[~2023-12-07] MED LIST changes: -GASTROGRAFIN SOLUTION 30ML As Ordered ONE; -ISOVUE-370 76% 100ML VIAL As Ordered ONE; +LISI5TAB11 PO; +VITAD400CA FT
[2023-12-07 19:29] LABS: HIV 1&2 SCREEN NEGATIVE (NEGATIVE)
== END ==
LOC: M PLALAB 13:20
PROVIDERS: ATTEND Internal Medicine Infectious Disease
DX: Z20.6 Contact with and (suspected) exposure to human immunodeficiency virus [HIV] (principal); A52.8 Late syphilis, latent

== ENCOUNTER → 2023-12-18 | Outpatient (REF) | payer OTHER ==
[2023-12-18 16:36] LABS: GC DNA AMPLIFICATION NEGATIVE (NEGATIVE)
[2023-12-18 16:37] LABS: GC DNA AMPLIFICATION NEGATIVE (NEGATIVE)
== END ==
LOC: M SFHCPLAZ 14:52
PROVIDERS: ATTEND Internal Medicine Infectious Disease
DX: A52.8 Late syphilis, latent (principal)

== ENCOUNTER 2024-02-16 15:19 | Emergency (ER) | payer OTHER ==
[~2024-02-16] VITALS: Ht 152.4 cm; Wt 61.9 kg
[2024-02-16 15:29] VITALS: BP 140/84; TEMP 97.5; O2SAT 97
[2024-02-16] MEDS ORDERED: WELLTAB38 PO (15:37)
[2024-02-16] MEDS: NEOSPORIN OINT 0.9 GM PKT TOP ONE (18:05)
[2024-02-16] MEDS: BOOSTRIX VACCINE (TETANUS/DIPHTH/ACEL. PERTUSSIS) 0.5ML SYR IM.IMMUN ONE (18:10)
[2024-02-16] MEDS ORDERED: BACI500O8 TOP (18:15)
== END 2024-02-16 18:32 | disposition home or self-care (01) ==
LOC: M ED 15:19
DX: T23.251A Burn of second degree of right palm, initial encounter (principal); E03.9 Hypothyroidism, unspecified; I10 Essential (primary) hypertension; F32.A Depression, unspecified; F12.10 Cannabis abuse, uncomplicated; Z23 Encounter for immunization; Z79.2 Long term (current) use of antibiotics; Z79.899 Other long term (current) drug therapy